=== PATIENT | male | born 1980 | race African-American/Black ===

== ENCOUNTER 2021-02-15 16:01 | Emergency (ER) | payer MEDICAID ==
[~2021-02-15] VITALS: Ht 193 cm; Wt 94.0 kg
[2021-02-15 17:39] VITALS: BP 140/94
[2021-02-15] MEDS ORDERED: IBUPROFEN 600MG TABLET PO ONE (17:45)
[2021-02-15 18:04] LABS: BASOPHILS % 0.5 % (0.0-2.0); CHLORIDE 109 mEq/L (98-107); HEMATOCRIT. 47.6 % (42.0-52.0); HEMOGLOBIN. 16.4 g/dL (14.0-18.0); LYMPHOCYTES % 21.5 % (20.0-50.0); MEAN CORPUSCULAR HEMOGLOBIN 30.8 pg (28.0-32.0); MEAN CORPUSCULAR VOLUME 89.7 fL (80.0-94.0); MEAN PLATELET VOLUME 7.6 fl (7.4-10.4); PLATELET 219 x1000/uL (130-400); RED BLOOD CELL COUNT 5.31 mill/uL (4.7-6.1); RED CELL DISTRIBUTION WIDTH 14.3 % (11.6-14.6)
[2021-02-15 18:18] LABS: PARTIAL THROMBOPLASTIN TIME 28.2 sec (23.4-31.0); PROTHROMBIN TIME 10.9 sec (9.6-11.0)
[2021-02-15] MEDS ORDERED: ENOXAPARIN 100MG/ML SYR SUBCUT ONE (19:15)
[2021-02-16] MEDS ORDERED: HYDR-4001 MT (10:08)
== END 2021-02-15 19:50 | disposition left against medical advice (07) ==
LOC: ER 16:01
DX: I82.622 Acute embolism and thrombosis of deep veins of left upper extremity (principal)
CPT/HCPCS: 36415; 71045; 73080; 73090; 73130; 80053; 85025; 85610; 85730; 93971; 96372; 99285; J1650

== ENCOUNTER 2021-02-15 23:03 | Emergency (ER) | payer MEDICAID ==
[~2021-02-15] VITALS: Ht 193 cm; Wt 96.0 kg
[2021-02-16] MEDS ORDERED: MORPHINE SULFATE 4 MG/ML CPJ (NOT FOR IM USE) IV ONE (01:15)
[2021-02-16] MEDS ORDERED: HYDROCODONE/ACETAMINOPHEN 5/325MG TABLET PO PRN (09:15)
[2021-02-16] MEDS ORDERED: ACETAMINOPHEN 325MG TABLET PO PRN (09:15)
[2021-02-16] MEDS ORDERED: ONDANSETRON HCL 4MG/2ML INJ IV PRN (09:15)
[2021-02-16] MEDS ORDERED: HYDR-4001 MT (10:08)
[2021-02-16] MEDS ORDERED: ENOXAPARIN 100MG/ML SYR SUBCUT NR (11:00)
[2021-02-16 11:23] VITALS: BP 128/90
== END 2021-02-16 11:28 | disposition home or self-care (01) ==
LOC: ER 23:03 → EDBEDREQTM 02-16 04:18 → EDBEDREQ 02-16 04:18 → EDBEDREQDT 02-16 04:18 → ENRESERV 02-16 10:40 → ER 02-16 11:28 → CANBEDREQ 02-16 11:52
DX: I82.622 Acute embolism and thrombosis of deep veins of left upper extremity (principal); D72.829 Elevated white blood cell count, unspecified
CPT/HCPCS: 96374; 99285; J2270; Z7610